=== PATIENT | male | born 2000 | race Caucasian/White ===

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

== ENCOUNTER → 2019-02-14 | Outpatient (REF) | payer MEDICAID ==
[~2019-02-14] MED LIST: HYDR-3363; KEFL500C17 PO; VITA-122; ZONI100C2 PO
[2019-02-14 17:00] LABS: HEMATOCRIT 47.5 % (42.0-52.0); HEMOGLOBIN 16.4 g/dl (13.5-17.5); MEAN CORPUSCULAR HEMOGLOBIN 28.8 pg (27.0-33.0); MEAN CORPUSCULAR HGB CONC 34.5 g/dl (32.0-36.5); MEAN CORPUSCULAR VOLUME 83.5 fl (80.0-96.0); PLATELET COUNT, AUTOMATED 298 10^3/uL (150-450); RED BLOOD COUNT 5.69 10^6/uL (4.30-6.10); WHITE BLOOD COUNT 6.8 10^3/uL (4.0-10.0)
[2019-02-14 17:06] LABS: ALBUMIN 3.9 GM/DL (3.2-5.2); ALT/SGPT 29 U/L (12-78); BILIRUBIN,TOTAL 0.2 MG/DL (0.2-1.0); BLOOD UREA NITROGEN 13 MG/DL (7-18); CALCIUM LEVEL 9.1 MG/DL (8.5-10.1); CARBON DIOXIDE LEVEL 22 MEQ/L (21-32); CHLORIDE LEVEL 112 MEQ/L (98-107); CHOLESTEROL LEVEL 176 MG/DL (<200); CHOLESTEROL RISK RATIO 6.285 (<5); CREATININE FOR GFR 1.16 MG/DL (0.70-1.30); GLUCOSE, FASTING 120 MG/DL (70-100); HDL CHOLESTEROL 28 MG/DL (>40); LDL CHOLESTEROL 123 MG/DL (<100); NON-HDL-C 148 MG/DL; POTASSIUM SERUM 3.8 MEQ/L (3.5-5.1); SODIUM LEVEL 142 MEQ/L (136-145); TOTAL PROTEIN 7.8 GM/DL (6.4-8.2); TRIGLYCERIDES LEVEL 125 MG/DL (<150)
[2019-02-14 17:14] LABS: TOTAL 25(OH) VITAMIN D 26.6 NG/ML (30.0-100.0)
[2019-02-14 17:21] LABS: HEMOGLOBIN A1c 5.2 %
== END ==
LOC: M LAB REF 16:29
PROVIDERS: ATTEND Nurse Practitioner Family
DX: J45.30 Mild persistent asthma, uncomplicated (principal)

== ENCOUNTER → 2019-03-16 | Outpatient (CLI) | payer BC, MEDICAID ==
--- NOTE | 2019-03-16 09:12 | PFTRPT ---
Height: 70.00 Inches Weight: 205.00 Lbs BSA: 2.11 Diagnosis: J45.30 DATE OF PROCEDURE: 03/16/2019 ORDERED BY: Olga Avila Spirometry: Pre and post bronchodilator study of excellent technical quality. Forced vital capacity normal. FEV1 borderline in proportion. Obstructive index is, therefore, borderline as well. Flow Volume Loop: Expiratory limb of the flow volume loop does suggest some degree of flow rate limitation. No significant bronchodilator response is identified. Lung Volumes: Total lung capacity normal. Residual volume in proportion. Diffusing Capacity: Diffusing capacity normal and remains normal when corrected for alveolar volume. Hemoglobin: No hemoglobin available for correction. Airway Mechanics: Airway resistance and conductance are normal. IMPRESSION: Cannot rule out a degree of mild obstructive impairment. Please correlate clinically. MTDD
== END ==
LOC: M CARPUL 08:32
PROVIDERS: ATTEND Nurse Practitioner Family
DX: J45.30 Mild persistent asthma, uncomplicated (principal)

== ENCOUNTER 2020-02-04 16:48 | Emergency (ER) | payer MEDICARE, BC, MEDICAID ==
[~2020-02-04] VITALS: Ht 182.9 cm; Wt 102.3 kg
[~2020-02-04 16:48] MED LIST changes: +ZONI100C17 PO; -ZONI100C2 PO
[2020-02-04] MEDS ORDERED: BUSP15TA47 (17:27)
[2020-02-04] MEDS ORDERED: CYCL5TAB (17:27)
[2020-02-04 19:59] VITALS: BP 151/81
== END 2020-02-04 20:12 | disposition home or self-care (01) ==
LOC: M ED 16:48 → EDBD 16:48 → EDSEX 16:48 → M ED 20:12
DX: T78.40XA Allergy, unspecified, initial encounter (principal); Z79.899 Other long term (current) drug therapy; Z88.0 Allergy status to penicillin; Z88.6 Allergy status to analgesic agent

== ENCOUNTER → 2020-04-19 | Outpatient (CLI) | payer MEDICARE, MEDICAID ==
[~2020-04-19] MED LIST changes: +BUSP15TA47; +CYCL5TAB
== END ==
LOC: M LAB 10:34
PROVIDERS: ATTEND Physician Assistant Medical
DX: G43.909 Migraine, unspecified, not intractable, without status migrainosus (principal); Z79.899 Other long term (current) drug therapy